=== PATIENT | male | born 1945 | race Caucasian/White ===

== ENCOUNTER → 2024-05-08 | Outpatient (CLI) | payer OTHER ==
[2024-05-08 14:21] LABS: Creatinine, Urine Random 35.8 mg/dL (27.00-270.00); Microalb/Creat Ratio UR, Rand 282.123 mg/g (0.000-30.000)
== END ==
LOC: LAB SHORT 12:01 → LAB 12:01
PROVIDERS: Physician Assistant
DX: E11.69 Type 2 diabetes mellitus with other specified complication (principal); E11.59 Type 2 diabetes mellitus with other circulatory complications; E11.42 Type 2 diabetes mellitus with diabetic polyneuropathy
CPT/HCPCS: 82043; 82570